=== PATIENT | female | born 2000 | race Two or more races ===

== ENCOUNTER 2021-06-09 21:43 | Emergency (ER) | payer MEDICAID ==
[~2021-06-09] VITALS: Ht 154.9 cm; Wt 56.8 kg
[2021-06-09 21:59] VITALS: BP 120/69
== END 2021-06-10 01:10 | disposition left against medical advice (07) ==
LOC: EMS 21:43
DX: R10.2 Pelvic and perineal pain (principal); Z53.21 Procedure and treatment not carried out due to patient leaving prior to being seen by health care provider